=== PATIENT | female | born 2000 | race African-American/Black ===

== ENCOUNTER 2024-10-24 09:48 | Emergency (ER) | payer SELFPAY ==
[~2024-10-24] VITALS: Ht 167.6 cm; Wt 95.0 kg
[2024-10-24 09:51] VITALS: TEMP 36.7; O2SAT 98
[2024-10-24] MEDS: ACETAMINOPHEN 325MG TABLET PO ONE (11:29)
[2024-10-24] MEDS ORDERED: TOPUD PO (11:35)
[2024-10-24 11:45] VITALS: BP 121/80; PULSE 90; RESP 16; O2SAT 99
== END 2024-10-24 12:06 | disposition home or self-care (01) ==
LOC: EDBD 09:48 → ER 09:48
DX: M54.50 Low back pain, unspecified (principal); Z79.899 Other long term (current) drug therapy
CPT/HCPCS: 74176; 93005; 99284